=== PATIENT | female | born 1940 | race Caucasian/White ===

== ENCOUNTER 2016-11-06 14:34 | Outpatient (CLI) | payer MEDICARE, OTHER ==
--- NOTE | 2016-11-07 10:03 | Ultrasound Report ---
AORTA SCREEN: 11/06/2016 CLINICAL INDICATION: Hypercholesterolemia. TECHNIQUE: Real-time scanning was performed with auto claim representative static images obtained. FINDINGS: The abdominal aorta is normal in caliber, measuring 1.9 cm proximally , 1.9 cm in the mid portion, and 1.4 cm distally. The iliacs are normal in caliber. Calcified plaquing is noted. IMPRESSION: NO EVIDENCE OF AN ABDOMINAL AORTIC ANEURYSM. JOB #: [id number] EXT JOB #: [id number] [facility]
--- NOTE | 2016-11-07 17:13 | Ultrasound Report ---
CAROTID DUPLEX: 11/06/2016 CLINICAL INDICATION: Hypercholesterolemia. TECHNIQUE: Real-time sonographic vascular imaging was performed by the cutter first through the carotid arteries utilizing both color-flow and Doppler spectral analysis. Multiple billing representative static images were saved for review. Vessel PSV cm/sec 2D Plaque Estimate % ICA/CCA PSV EDV cm/sec % Stenosis RCCA Prox 79.5 -- RCCA Dist 82 14 RECA 81 -- RT BULB 54 -- .65 11 CHRIS Prox 61 -- .74 15 CHRIS Mid 91 -- 1.10 25 CHRIS Dist 96 -- 1.17 25 RVA 45 RVA flow direction: Antegrade. Vessel PSV cm/sec 2D Plaque Estimate % ICA/CCA PSV EDV cm/sec % Stenosis LCCA Prox 71 -- LCCA Dist 75 18 LECA 72 -- LFT BULB 57 -- .76 12 LICA Prox 68 -- .90 21 LICA Mid 87 -- 1.16 25 LICA Dist 64 -- .85 18 LVA 44 LVA flow direction: Antegrade. Velocity criteria are extrapolated from diameter data as defined by the Society of Radiologists in Ultrasound Consensus Conference Radiology 2003; 229; 340-346. Degree of Stenosis % ICA PSV cm/sec Plaque Estimate % ICA/CCA RSV Ratio ICA EDV cm/sec Normal < 125 None < 2.0 < 40 <50 < 125 < 50 < 2.0 < 40 50-69 125 - 130 >/= 50 2.0 - 4.0 40 - 100 >/= 70 but less than near occlusion > 230 >/= 50 > 4.0 > 100 Near occlusion High, low, or undetectable Visible lumen Variable Variable Total occlusion Undetectable No detectable lumen Not applicable Not applicable FINDINGS RIGHT: There is minimal plaquing in the right carotid bifurcation, without evidence of a focal hemodynamically significant stenosis. LEFT: There is minimal plaquing in the left carotid bifurcation, without evidence of a focal hemodynamically significant stenosis. The vertebral arteries demonstrate antegrade flow bilaterally. IMPRESSION: MINIMAL PLAQUING BILATERALLY. NO EVIDENCE OF A FOCAL HEMODYNAMICALLY SIGNIFICANT CAROTID STENOSIS. MTDD
== END 2016-11-06 14:35 | disposition home or self-care (01) ==
LOC: DI 14:34
PROVIDERS: ATTEND Family Medicine
DX: E78.00 Pure hypercholesterolemia, unspecified (principal)
CPT/HCPCS: 76706; 93880

== ENCOUNTER 2016-11-29 09:56 | Outpatient (CLI) | payer MEDICARE, OTHER ==
--- NOTE | 2016-11-30 17:12 | Mammography Report ---
DIGITAL SCREENING MAMMOGRAM: 11/29/2016 CLINICAL INDICATION: A 76-year-old for screening, history of benign excisional biopsy. COMPARISON: 11/2014, 11/2012, 12/2010, 10/2008, 11/2006. TECHNIQUE: Routine CC and MLO projections as well as bilateral laterally exaggerated craniocaudal vi ews were obtained of the breasts. FINDINGS: Parenchymal tissue within both breasts is heterogeneously dense, which may lower the sensi tivity of mammography; however, there are no dominant masses, suspicious microcalcifications, or seco ndary signs of malignancy. In comparison to the previous studies, there are no significant changes. ASSESSMENT: NO MAMMOGRAPHIC EVIDENCE OF MALIGNANCY. NO SIGNIFICANT INTERVAL CHANGES. RECOMMENDATION: Screening mammography is recommended annually. BIRADS category 1 - negative. STANDARD QUALIFYING STATEMENTS 1. This examination was reviewed with the aid of Computed-Aided Detection (CAD). 2. A negative or benign imaging report should not delay biopsy if clinically suspicious findings are present. Consider surgical consultation if warranted. More than 5% of cancers are not identified b y imaging. 3. Dense breasts may obscure an underlying neoplasm. JOB #: [id number] EXT JOB #:[id number]
== END 2016-11-29 09:57 | disposition home or self-care (01) ==
LOC: DI.S 09:56
PROVIDERS: ATTEND Family Medicine
DX: Z12.31 Encounter for screening mammogram for malignant neoplasm of breast (principal)
CPT/HCPCS: 77067

== ENCOUNTER 2016-12-13 07:02 | Day surgery (SDC) | payer MEDICARE, OTHER ==
[2016-12-13] MEDS ORDERED: LACTATED RINGERS 1,000 ML IV ONE (07:09)
[2016-12-13] MEDS ORDERED: fentaNYL 100 MCG/2 ML VIAL IVP ONE (08:37)
[2016-12-13] MEDS ORDERED: MIDAZOLAM 2 MG/2 ML VIAL IVP ONE (08:37)
[2016-12-13 09:20] VITALS: BP 110/65
== END 2016-12-13 07:03 | disposition home or self-care (01) ==
LOC: SDS 07:02
PROVIDERS: ATTEND Surgery
PROC: 0DJD8ZZ Inspection of Lower Intestinal Tract, Via Natural or Artificial Opening Endoscopic (ICD-10-PCS; principal; 2016-12-13 08:15)
DX: Z12.11 Encounter for screening for malignant neoplasm of colon (principal); K57.30 Diverticulosis of large intestine without perforation or abscess without bleeding; K64.8 Other hemorrhoids; F17.210 Nicotine dependence, cigarettes, uncomplicated
CPT/HCPCS: G0121; J7120

== ENCOUNTER 2017-01-14 10:45 | Emergency (ER) | payer MEDICARE, OTHER ==
[2017-01-14] MEDS ORDERED: LIDOCAINE 1% 2 ML VIAL ONE (12:33)
[2017-01-14] MEDS ORDERED: BACITRACIN OINT TOP ONE (13:16)
--- NOTE | 2017-01-14 13:33 | ED Physician Documentation ---
PD HPI UPPER EXT INJURY - Stated complaint Stated Complaint: R HAND LAC - Chief complaint Chief Complaint: Wound - History obtained from History obtained from: Patient - History of Present Illness Location: Right, Hand Type of injury: Blunt / blow Where injury occurred: Home Timing - onset: Today Timing - duration: Hours Timing - details: Abrupt onset, Still present Improved by: Rest, Immobilization Worsened by: Moving, Palpating Contributing factors: No: Anticoagulated Similar symptoms before: Has not had sx before Recently seen: Not recently seen - Additonal information Additional information: 76-year-old female is leading her horse out of a gait when the horse bolted open the gate and this tore the skin on the back of her right hand is a large flap of skin and exposed tendon. PD PAST MEDICAL HISTORY - Past Medical History Past Medical History: Yes Endocrine/Autoimmune: HyPOthyroidism - Past Surgical History Past Surgical History: Yes General: Colonoscopy Ortho: Hip replacement /STOCK TAKER: Tubal ligation HEENT: Tonsil/Adenoidectomy - Present Medications Home Medications: Ambulatory Orders Medication Instructions Recorded Confirmed Doxycycline Hyclate 20 mg PO BID 12/12/16 01/14/17 Fesoterodine Fumarate [Toviaz] 8 mg PO DAILY 12/12/16 01/14/17 Levothyroxine Sodium [Synthroid] 137 mcg PO DAILY 12/12/16 01/14/17 Simvastatin 20 mg PO DAILY 12/12/16 01/14/17 - Allergies Allergies/Adverse Reactions: Allergies Allergy/AdvReac Type Severity Reaction Status Date / Time ethinyl estradiol Allergy Hives Verified 12/12/16 16:45 [From Ortho-Novum (21)] metronidazole [From Flagyl] Allergy Hives Verified 12/12/16 16:44 norethindrone * Allergy Hives Verified 12/12/16 16:45 [From Ortho-Novum 35 (21)] oxycodone HCl * Allergy Hives Verified 12/12/16 16:45 [From OxyContin] Sulfa (Sulfonamide Allergy Unknown Verified 12/12/16 16:44 Antibiotics) - Social History Does the pt smoke?: Yes Smoking Status: Current every day smoker Does the pt drink ETOH?: Yes ETOH Use: Wine, Beer Does the pt have substance abuse?: No - Immunizations Immunizations are current?: Yes - POLST Patient has POLST: No PD ED PE NORMAL - Vitals Vital signs reviewed: Yes (normal ) - General General: Alert and oriented X 3, No acute distress, Well developed/nourished - HEENT HEENT: Atraumatic, PERRL, EOMI - Respiratory Respiratory: No respiratory distress - Derm Derm: Normal color, Warm and dry, No rash - Extremities Extremities: Other (over the dorsum of the right hand there is a skin flap that is deep to the extensor tendon of the right index. The skin covers the defect easily. There is no disruption of the tendon or deeper structures and the distal n/v is intact. The flap is approx 9cm) - Neuro Neuro: Alert and oriented X 3, No motor deficit, No sensory deficit, Normal speech Results - Vitals Vitals: Vital Signs - 24 hr 01/14/17 01/14/17 10:57 13:33 Temperature 36.4 C L 36.7 C Heart Rate 73 61 Respiratory 14 18 Rate Blood Pressure 102/63 102/65 O2 Saturation 97 96 Oxygen O2 Source Room air Procedures - Laceration (location) right hand Length in cm: 9 Wound type: Irregular, Flap, Into subcut fat, Clean Anesthesia: Lidocaine 1% Wound Preparation: Hibiclens, Irrigated copiously NS, Wound explored, To the base Skin layer closure: Nylon, Interrupted, Size #-0 - enter number (5-0), Sutures - enter # (21) Other: Patient tolerated well, No complications, Neurovascular intact, Dressing applied, Tetanus UTD Complexity: Simple PD MEDICAL DECISION MAKING - ED course Complexity details: re-evaluated patient, considered differential, d/w patient, d/w family ED course: 76 y/o female with a thin skin flap that has a deep component has the skin to cover the wound and this is sutured. Departure - Departure Disposition: 01 Home, Self Care Clinical Impression: Hand laceration Qualifiers: Encounter type: initial encounter Foreign body presence: without foreign body Laterality: right Qualified Code(s): S61.411A - Laceration without foreign body of right hand, initial encounter Instructions: ED Laceration Hand Follow-Up: Zahra Cunningham MD [Primary Care Provider] - Comments: sutures out in 10 days Discharge Date/Time: 01/14/17 13:36
[2017-01-14 13:34] VITALS: BP 102/65
== END 2017-01-14 13:36 | disposition home or self-care (01) ==
LOC: ED 10:45
DX: S61.411A Laceration without foreign body of right hand, initial encounter (principal); Y93.K1 Activity, walking an animal; Y92.017 Garden or yard in single-family (private) house as the place of occurrence of the external cause
CPT/HCPCS: 12004; 99282; 99283; A9270

== ENCOUNTER 2018-10-30 14:56 | Outpatient (CLI) | payer MEDICARE, OTHER ==
--- NOTE | 2018-10-30 18:47 | MRI Report ---
Reason: SPINAL STENOSIS, CERVICAL REGION Procedure Date: 10/30/2018 Accession Number: [id number] / [id number] Procedure: MRI - Cervical Spine W/O CPT Code: FULL RESULT: EXAM: MRI CERVICAL SPINE WITHOUT CONTRAST. EXAM DATE: 10/30/2018 03:45 PM. CLINICAL HISTORY: Spinal stenosis, cervical region. COMPARISONS: None. TECHNIQUE: Multiplanar, multisequence T1-weighted and fluid-sensitive sequences of the cervical spine without contrast. Other: None. FINDINGS: Vertebral body height loss is seen at T3 and at T4. There is no marrow edema seen. No significant retropulsion of fracture fragments is present. This appears to be chronic. There is some motion degradation on the study. No suspicious marrow replacement is present in the cervical vertebral bodies. Mild loss of vertebral body height is seen along the superior plate at T1 and to a lesser extent T2 without marrow edema. Buckling of ligamentum flavum is seen most evident from C3-C7. Grade 1 retrolisthesis of C3 relative to C4 is present. Grade 1 retrolisthesis of C5 relative to C6 is noted. Accounting for artifact, no abnormal T2 signal is present in the cervical spinal cord. C2-C3: No posterior disk protrusion. C3-C4: A mild broad-based posterior disk protrusion is seen. Disk/osteophyte complex formation is seen involving the posterior lateral margin of the disk bilaterally. Bilateral uncovertebral joint spurring is seen. Moderate bilateral foraminal stenosis is seen. No central canal stenosis. C4-C5: A minimal posterior disk protrusion is seen. Bilateral uncovertebral joint spurring is seen. Right facet hypertrophy is present. Mild bilateral foraminal stenosis greater on the right relative to the left. C5-C6: A mild broad-based posterior disk protrusion is seen. Disk/osteophyte complex formation is seen involving the posterior lateral margin of the disk bilaterally. Bilateral uncovertebral joint spurring is seen. Moderate bilateral foraminal stenosis is present. Central canal is borderline without overt stenosis. C6-C7: A mild broad-based posterior disk protrusion is seen. Disk/osteophyte complex formation is seen involving the posterior lateral margin of the disk bilaterally. Bilateral uncovertebral joint spurring is seen. Mild to moderate bilateral foraminal stenosis is seen. C7-T1: No posterior disk protrusion. IMPRESSION: 1. Degenerative disk disease, osteophyte formation, and uncovertebral joint spurring are seen at multiple levels in the cervical spine. This is greatest at C3-C4, C5-C6, and C6-C7. 2. No central canal stenosis is present. The central canal is borderline at C5-C6 3. Multilevel foraminal stenosis is present. 4. Chronic vertebral body height loss is seen involving the upper thoracic vertebral bodies most evident at T3 and T4. RADIA
== END 2018-10-30 14:57 | disposition home or self-care (01) ==
LOC: DI 14:56
PROVIDERS: ATTEND Nurse Practitioner Adult Health
DX: M50.31 Other cervical disc degeneration, high cervical region (principal); M47.9 Spondylosis, unspecified; M50.21 Other cervical disc displacement, high cervical region; M48.02 Spinal stenosis, cervical region; M51.34 Other intervertebral disc degeneration, thoracic region; M43.12 Spondylolisthesis, cervical region
CPT/HCPCS: 72141

== ENCOUNTER 2019-07-03 14:11 | Outpatient (CLI) | payer MEDICARE, OTHER ==
[2019-07-03 17:48] LABS: ALBUMIN 4.4 g/dL (3.2-5.5); BILIRUBIN,DIRECT 0.1 mg/dL (0.1-0.5); BILIRUBIN,TOTAL 0.6 mg/dL (0.2-1.0)
== END 2019-07-03 14:12 | disposition home or self-care (01) ==
LOC: LAB.S 14:11
PROVIDERS: ATTEND Physician Assistant Medical
DX: B35.1 Tinea unguium (principal); Z79.899 Other long term (current) drug therapy
CPT/HCPCS: 36415; 80076

== ENCOUNTER 2019-09-02 10:04 | Outpatient (CLI) | payer MEDICARE, OTHER ==
[2019-09-02 18:13] LABS: THYROID STIMULATING HORMONE 2.41 uIU/mL (0.34-5.60)
[2019-09-02 18:15] LABS: FREE T4 (FREE THYROXINE) 1.44 ng/dL (0.58-1.64)
== END 2019-09-02 10:05 | disposition home or self-care (01) ==
LOC: LAB.S 10:04
PROVIDERS: ATTEND Family Medicine
DX: E03.9 Hypothyroidism, unspecified (principal); R79.82 Elevated C-reactive protein (CRP)
CPT/HCPCS: 36415; 84439; 84443; 86140

== ENCOUNTER 2019-09-11 13:35 | Outpatient (CLI) | payer MEDICARE, OTHER ==
--- NOTE | 2019-09-17 13:45 | Mammography Report ---
Reason: ROUTINE MAMMO Procedure Date: 09/11/2019 Accession Number: [id number] / [id number] Procedure: MATILDA - Screening Mammo Dig Bilat CPT Code: Final Report FULL RESULT: EXAM: Screening Mammo Dig Bilat DATE: 09/11/2019 2:18 PM CLINICAL HISTORY: Screening encounter. History of excisional left breast biopsy with benign pathology. TECHNIQUE: (B) - Bilateral CC, laterally exaggerated CC, MLO views were obtained. COMPARISON: 11/29/2016 through 01/03/2011. PARENCHYMAL PATTERN: (D) - The breast(s) demonstrate(s) heterogeneously dense fibroglandular parenchyma. FINDINGS: There are no suspicious masses, calcifications, or areas of distortion. IMPRESSION: Negative examination. BI-RADS category 1. RECOMMENDATION: (ANNUAL) - Recommend routine annual screening mammography. BI-RADS CATEGORY: (1) - Negative. STANDARD QUALIFYING STATEMENTS: 1. This examination was not reviewed with the aid of Computer-Aided Detection (CAD). 2. A negative or benign imaging report should not preclude biopsy if clinically suspicious findings are present. 3. Dense breasts may obscure an underlying neoplasm. 4. This examination was reviewed without the aid of 3D breast imaging (tomosynthesis).
== END 2019-09-11 13:36 | disposition home or self-care (01) ==
LOC: DI 13:35
PROVIDERS: ATTEND Family Medicine
DX: Z12.31 Encounter for screening mammogram for malignant neoplasm of breast (principal)
CPT/HCPCS: 77067

== ENCOUNTER 2019-09-11 13:40 | Outpatient (CLI) | payer MEDICARE, OTHER ==
--- NOTE | 2019-09-16 11:24 | DEXA Report ---
Reason: FOREARM FOR BILAT HIP HARDWARE Procedure Date: 09/11/2019 Accession Number: [id number] / [id number] Procedure: DEX - Dexa Forearm CPT Code: Final Report FULL RESULT: EXAM: Dexa Spine and/or Hip, Dexa Forearm DATE: 09/11/2019 3:07 PM CLINICAL HISTORY: DISORDER OF BONE TECHNIQUE: Dual energy x-ray absorptiometry (DXA) was performed on a [employer] System. Regions measured are the AP Spine, femoral neck, and if needed forearm. The forearm was imaged in standard of the hip as the patient has had orthopedic fixation hardware to both hips. COMPARISON: None. In accordance with the International Society for Clinical Densitometry (ISCD) guidelines, data from previous exams may be reanalyzed using current recommendations and techniques. This is done to allow a more accurate basis for comparison with the current study. FINDINGS: The data for the lumbar spine is as follows: BMD (g/cm/cm) T-SCORE Z-SCORE REGION L1 0.819 -2.6 -0.6 L2 1.022 -1.5 0.5 L3 1.174 -0.2 1.8 L4 1.194 -0.1 2.0 TOTAL 1.082 -0.8 1.2 NOTE: All evaluable vertebrae are used for classification The data for the left forearm is as follows: BMD (g/cm/cm) T-SCORE Z-SCORE REGION 1/3 0.785 -1.0 1.7 NOTE: The 33% radius of the nondominant forearm is used for classification. DXA RESULTS SUMMARY: Spine SCAN DATE AGE BMD CHANGE VS CHANGE VS PREVIOUS PREVIOUS % 09[birth year]11/2019 [age] 1.143 0.045* 4.1* 03[birth year]14/2016 75.6 1.098 * Denotes significant change at the 95% confidence level. Denotes dissimilar scan types or analysis methods. DXA RESULTS SUMMARY: Forearm SCAN DATE AGE BMD CHANGE VS CHANGE VS PREVIOUS PREVIOUS % 09[age]11/2019 79.1 0.785 -0.012 -1.5 03[birth year]14/2016 75.6 0.797 * Denotes significant change at the 95% confidence level. Denotes dissimilar scan types or analysis methods. IMPRESSION: THE WHO CLASSIFICATION BASED ON THE INTERNATIONAL REFERENCE STANDARD IS NORMAL. THE FRACTURE RISK IS NOT INCREASED. Interval decrease in bone density in the lumbar spine is statistically significant. RECOMMENDATION: Patients with diagnosis of osteoporosis or osteopenia should have regular bone mineral density assessment. For those eligible for Medicare, routine testing is allowed once every 2 years. Testing frequency can be increased for patients who have rapidly progressing disease or for those who are receiving medical therapy to restore bone mass. COMMENT: World Health Organization (WHO) definitions for osteoporosis and osteopenia: NORMAL BMD: T-score at -1.0 or higher, fracture risk is low OSTEOPENIA BMD: T-score between -1.0 and -2.5, fracture risk is increased. OSTEOPOROSIS BMD: T-score at -2.5 or lower, fracture risk is high. National Osteoporosis Foundation recommends: 1. Obtain adequate dietary calcium (at least 1200 mg per day) and vitamin D (400-800 international units per day). 2. Participate, as appropriate, in regular weightbearing and muscle-strengthening exercise. 3. Avoid tobacco use and reduce alcohol and caffeine intake. 4. For more detailed information see the website at www.NOF.org.
--- NOTE | 2019-09-16 11:24 | DEXA Report ---
Reason: DISORDER OF BONE Procedure Date: 09/11/2019 Accession Number: [id number] / [id number] Procedure: DEX - Dexa Spine and/or Hip CPT Code: Final Report FULL RESULT: EXAM: Dexa Spine and/or Hip, Dexa Forearm DATE: 09/11/2019 3:07 PM CLINICAL HISTORY: DISORDER OF BONE TECHNIQUE: Dual energy x-ray absorptiometry (DXA) was performed on a [employer] System. Regions measured are the AP Spine, femoral neck, and if needed forearm. The forearm was imaged in standard of the hip as the patient has had orthopedic fixation hardware to both hips. COMPARISON: None. In accordance with the International Society for Clinical Densitometry (ISCD) guidelines, data from previous exams may be reanalyzed using current recommendations and techniques. This is done to allow a more accurate basis for comparison with the current study. FINDINGS: The data for the lumbar spine is as follows: BMD (g/cm/cm) T-SCORE Z-SCORE REGION L1 0.819 -2.6 -0.6 L2 1.022 -1.5 0.5 L3 1.174 -0.2 1.8 L4 1.194 -0.1 2.0 TOTAL 1.082 -0.8 1.2 NOTE: All evaluable vertebrae are used for classification The data for the left forearm is as follows: BMD (g/cm/cm) T-SCORE Z-SCORE REGION 1/3 0.785 -1.0 1.7 NOTE: The 33% radius of the nondominant forearm is used for classification. DXA RESULTS SUMMARY: Spine SCAN DATE AGE BMD CHANGE VS CHANGE VS PREVIOUS PREVIOUS % 09[age]11/2019 79.1 1.143 0.045* 4.1* 03[birth year]14/2016 76.6 1.098 * Denotes significant change at the 95% confidence level. Denotes dissimilar scan types or analysis methods. DXA RESULTS SUMMARY: Forearm SCAN DATE AGE BMD CHANGE VS CHANGE VS PREVIOUS PREVIOUS % 09[birth year]11/2019 79.1 0.785 -0.012 -1.5 03[birth year]14/2016 75.6 0.797 * Denotes significant change at the 95% confidence level. Denotes dissimilar scan types or analysis methods. IMPRESSION: THE WHO CLASSIFICATION BASED ON THE INTERNATIONAL REFERENCE STANDARD IS NORMAL. THE FRACTURE RISK IS NOT INCREASED. Interval decrease in bone density in the lumbar spine is statistically significant. RECOMMENDATION: Patients with diagnosis of osteoporosis or osteopenia should have regular bone mineral density assessment. For those eligible for Medicare, routine testing is allowed once every 2 years. Testing frequency can be increased for patients who have rapidly progressing disease or for those who are receiving medical therapy to restore bone mass. COMMENT: World Health Organization (WHO) definitions for osteoporosis and osteopenia: NORMAL BMD: T-score at -1.0 or higher, fracture risk is low OSTEOPENIA BMD: T-score between -1.0 and -2.5, fracture risk is increased. OSTEOPOROSIS BMD: T-score at -2.5 or lower, fracture risk is high. National Osteoporosis Foundation recommends: 1. Obtain adequate dietary calcium (at least 1200 mg per day) and vitamin D (400-800 international units per day). 2. Participate, as appropriate, in regular weightbearing and muscle-strengthening exercise. 3. Avoid tobacco use and reduce alcohol and caffeine intake. 4. For more detailed information see the website at www.NOF.org.
== END 2019-09-11 13:41 | disposition home or self-care (01) ==
LOC: DI 13:40
PROVIDERS: ATTEND Family Medicine
DX: M89.9 Disorder of bone, unspecified (principal); Z96.7 Presence of other bone and tendon implants
CPT/HCPCS: 77080; 77081

== ENCOUNTER 2019-09-19 13:38 | Outpatient (CLI) | payer MEDICARE, OTHER ==
[2019-09-19 18:19] LABS: ALBUMIN 4.3 g/dL (3.2-5.5); ALKALINE PHOSPHATASE 54 IU/L (42-121); ALT ALANINE AMINOTRANSFERASE 19 IU/L (10-60); AST ASPARTATE AMINOTRANSFERASE 21 IU/L (10-42); BILIRUBIN,TOTAL 0.7 mg/dL (0.2-1.0); TOTAL PROTEIN 6.9 g/dL (6.7-8.2)
[2019-09-19 18:28] LABS: BILIRUBIN,DIRECT < 0.1 mg/dL (0.1-0.5)
== END 2019-09-19 13:39 | disposition home or self-care (01) ==
LOC: LAB.S 13:38
PROVIDERS: ATTEND Physician Assistant Medical
DX: B35.1 Tinea unguium (principal); Z79.899 Other long term (current) drug therapy
CPT/HCPCS: 36415; 80076

== ENCOUNTER 2020-07-08 12:28 | Outpatient (CLI) | payer MEDICARE, OTHER ==
--- NOTE | 2020-07-08 12:57 | XRAY Report ---
PROCEDURE: Hip w/Pelvis 1V LT INDICATIONS: LEFT HIP PAIN TECHNIQUE: AP pelvis with lateral view(s) of the left hip(s). COMPARISON: None. FINDINGS: Bones: No fractures or dislocations. Pelvic ring appears intact. No suspicious bony lesions. Intr amedullary minh fixation is present within the left hip. Hardware is intact. No evidence of perihardwa re lucency. Previous area of fracture are noted. Soft tissues: The visualized bowel gas pattern is normal. No suspicious soft tissue calcifications. IMPRESSION: Good anatomic alignment with fixation of the left hip as above. Reviewed by: Grace Villegas MD on 07/08/2020 12:55 PM PST Approved by: Grace Villegas MD on 07/08/2020 12:55 PM PST Station ID: [id number]
== END 2020-07-08 23:59 | disposition home or self-care (01) ==
LOC: DI.S 12:28
PROVIDERS: ATTEND Physician Assistant Medical
DX: M25.552 Pain in left hip (principal)

== ENCOUNTER 2021-10-25 14:19 | Outpatient (CLI) | payer MEDICARE, OTHER ==
--- NOTE | 2021-10-26 14:09 | Mammography Report ---
BILATERAL DIGITAL SCREENING MAMMOGRAM 3D/2D WITH EXAGGERATED CC: 10/25/2021 CLINICAL: Routine screening. Family history of breast cancer. Comparison is made to exams dated: 09/11/2019 mammogram, 11/29/2016 mammogram, and 11/24/2014 mammogram - [facility]. The tissue of both breasts is heterogeneously dense. This may lower the sensitivity of mammography. No significant masses, calcifications, or other findings are seen in either breast. There has been no significant interval change. IMPRESSION: NEGATIVE There is no mammographic evidence of malignancy. A 1 year screening mammogram is recommended. This exam was interpreted at Station ID: [id number]. NOTE: For mammograms, a report in lay terms will be sent to the patient. Approximately 15% of breast malignancies will not be visualized mammographically. In the management of a palpable breast mass, a negative mammogram must not discourage biopsy of a clinically suspicious lesion. Electronically Signed By: Steven Hassan M.D. slc/penrad:10/25/2021 16:04:04 ACR BI-RADS Category 1: Negative 3341F PARENCHYMAL PATTERN: (D) - The breast(s) demonstrate(s) heterogeneously dense fibroglandular cyndi wallis. BI-RADS CATEGORY: (1) - 1 RECOMMENDATION: (ANNUAL) - Recommend routine annual screening mammography. [id number] 1 year screening LATERALITY: (B)
== END 2021-10-25 14:20 | disposition home or self-care (01) ==
LOC: DI.S 14:19
PROVIDERS: ATTEND Family Medicine
DX: Z12.31 Encounter for screening mammogram for malignant neoplasm of breast (principal); Z80.3 Family history of malignant neoplasm of breast

== ENCOUNTER 2021-11-20 21:25 | Outpatient (CLI) | payer MEDICARE, OTHER | END 2021-11-20 21:26 | disposition EMS.NT | LOC: EMS 21:25 | DX: S81.811A Laceration without foreign body, right lower leg, initial encounter (principal); W22.8XXA Striking against or struck by other objects, initial encounter; Y92.009 Unspecified place in unspecified non-institutional (private) residence as the place of occurrence of the external cause ==

== ENCOUNTER 2021-11-20 22:24 | Emergency (ER) | payer MEDICARE, OTHER ==
[2021-11-20] MEDS ORDERED: TETANUS/DIPHTHERIA/PERTUSSIS 0.5 ML SYRINGE IM ONE (23:01)
--- NOTE | 2021-11-20 23:04 | ED Physician Documentation ---
PD HPI LOWER EXT INJURY - Stated complaint Stated Complaint: RT LEG LAC/BLOOD THINNERS - Chief complaint Chief Complaint: Laceration - History obtained from History obtained from: Patient - History of Present Illness PD HPI LOW EXT INJURY LOCATION: Right, Lower leg Type of injury: Blunt / blow Where injury occurred: Home Timing - onset: Enter time (21:00), Today Timing - details: Abrupt onset Pain level now: 2 Associated symptoms: No: Weakness, Numbness, Tingling, Swelling, Discolored Contributing factors: Anticoagulated Similar symptoms before: Has not had sx before Recently seen: Not recently seen - Additional information Additional information: At approximately 9 PM tonight, patient got up quickly from sitting position to answer her telephone, accidentally struck her right lower leg against window sill, causing large laceration to the right lower leg. She is able to weight- bear. Her chief concern is persistent oozing; she takes eliquis. She does not know if she is up to date on tetanus Review of Systems Skin: reports: Laceration (s) Musculoskeletal: reports: Extremity pain, Pain with weight bearing (able to fully weight bear although this does exacerbate the RLL discomfort) Neurologic: denies: Focal weakness, Numbness PD PAST MEDICAL HISTORY - Past Medical History Past Medical History: Yes Cardiovascular: Atrial flutter Endocrine/Autoimmune: HyPOthyroidism - Past Surgical History Past Surgical History: Yes General: Colonoscopy Ortho: Hip replacement /DIRECTOR SPECIALTY: Tubal ligation HEENT: Tonsil/Adenoidectomy - Present Medications Home Medications: Ambulatory Orders Medication Instructions Recorded Confirmed Doxycycline Hyclate 20 mg PO BID 12/12/16 11/20/21 Fesoterodine Fumarate [Toviaz] 8 mg PO DAILY 12/12/16 11/20/21 Levothyroxine Sodium [Synthroid] 137 mcg PO DAILY 12/12/16 11/20/21 Simvastatin 20 mg PO DAILY 12/12/16 11/20/21 Apixaban [Eliquis] 5 mg PO DAILY 11/20/21 11/20/21 Cyclobenzaprine [Flexeril] 10 mg PO TID PRN #20 tablet 11/21/21 HYDROcod/ACETAM 5/325 [Schoolcraft 5/325] 1 - 2 tablet PO Q6H PRN #14 tablet 11/21/21 cephALEXin [Keflex] 500 mg PO Q6H #28 cap 11/21/21 - Allergies Allergies/Adverse Reactions: Allergies Allergy/AdvReac Type Severity Reaction Status Date / Time ethinyl estradiol Allergy Hives Verified 11/20/21 22:32 [From [facility]o-[facility] (21)] metronidazole [From Flagyl] Allergy Hives Verified 11/20/21 22:32 norethindrone * Allergy Hives Verified 11/20/21 22:32 [From [facility]o-[facility] (21)] oxycodone HCl * Allergy Hives Verified 11/20/21 22:32 [From OxyContin] Sulfa (Sulfonamide Allergy Unknown Verified 11/20/21 22:32 Antibiotics) - Social History Does the pt smoke?: Yes Smoking Status: Current every day smoker Does the pt drink ETOH?: Yes Does the pt have substance abuse?: No - Immunizations Immunizations are current?: Yes - POLST Patient has POLST: No PD ED PE NORMAL - Vitals Vital signs reviewed: Yes - General General: Alert and oriented X 3, No acute distress, Well developed/nourished - Extremities Extremities: No edema, Other (mild TTP over area of laceration but no bony tenderness to palpation) - Neuro Neuro: No motor deficit, No sensory deficit PD ED PE EXPANDED - Extremities RADHA LE visual: 1 - laceration 2 - laceration (V-shaped laceration, total of 13 cm length. laceration is down to fascia overlying the tibia) Results - Vitals Vitals: Oxygen O2 Source Room air Procedures - Laceration (location) Lower extremity right Length in cm: 13 Wound type: Irregular (V-shaped) Neurovascular status: Sensory intact, Motor intact, Vascular intact Tendon involvement: Tendon intact Wound preparation: Chlorhexadine, Irrigated copiously NS, Wound explored Skin layer closure: Nylon, Interrupted, Running, Size #-0 - enter number (3-0), Other (one running suture placed along the lateral aspect of the V of the wound, two running sutures for closure of the medial aspect, and two simple interrupted sutures placed at the vertex of the V) Other: Patient tolerated well, No complications, Neurovascular intact, Dressing applied, Tetanus booster given PD MEDICAL DECISION MAKING - ED course Complexity details: considered differential, d/w patient ED course: Presents with large laceration to right lower leg. The wound edges were thick enough to allow for suture repair (as opposed to being a simple skin tear), but not thick enough for reji. There was trivial bleeding before and during the procedure despite patient taking eliquis. I am prescribing a short course of short-acting opioid pain medication for this patient. I have reviewed the patients VEGETABLE TRIMMER and no concerning findings were noted. I have discussed that the opioids are for short term therapy only, and will not be refilled from the ED Departure - Departure Disposition: Home, Self Care Clinical Impression: Laceration Condition: Good Instructions: ED Laceration Ext Sutr Stap Tape Follow-Up: Zahra Cunningham MD [Primary Care Provider] - Prescriptions: Cyclobenzaprine [Flexeril] 10 mg PO TID PRN #20 tablet PRN Reason: Spasms cephALEXin [Keflex] 500 mg PO Q6H #28 cap HYDROcod/ACETAM 5/325 [Schoolcraft 5/325] 1 - 2 tablet PO Q6H PRN #14 tablet PRN Reason: Pain Comments: Follow up with your primary care provider in 10-14 days for removal of the stitches. Three prescriptions have been electronically submitted to [facility] in [place]: an antibiotic (cephalexin; this is to minimize the risk of the wound becoming infected), a pain medication (vicodin; this is a narcotic medication. Do not drive while taking this medication), and a muscle relaxer (cyclobenzaprine; may cause drowsiness. Do not drive while taking this medicati on). I am prescribing a short course of narcotic pain medication for you. These are potentially dangerous and addictive medications that should be used carefully. These medications may constipate you. Take an [id number]-nqsihuo stool softener (docusate) twice daily with plenty of water while taking these medications. If you go 24 hours without a bowel movement, take [id number] miralax, per package instructions. Do not drink or drive while taking these medications. If you received narcotic or sedating medications while in the emergency department, do not drive for 24 hours. Store this medication in a safe, secure place and out of reach of children. It is a violation of federal law to give or sell this medication to another person or to use in a manner other than prescribed. The ED will not refill narcotic prescriptions, including prescriptions lost or stolen. To dispose of unwanted medications: 1. [facility] [address] in [place] has a medication drop box. They accept prescription medications (in pill form) Sunday through Sunday 9:00 a.m. to 5:00 p.m. 2. [facility] accepts prescription medications (in pill form only) for disposal year round. Call for more information. 3. Contact the [facility] for the next [facility] sponsored prescription drug collection event. , [phone], or [phone]; Discharge Date/Time: 11/21/21 01:47
[2021-11-20] MEDS ORDERED: IBUPROFEN 600 MG TABLET PO STA (23:18)
[2021-11-20] MEDS ORDERED: lidocaine 1% 20 ML MDV SUBQ STA (23:19)
[2021-11-21] MEDS ORDERED: cephALEXin 250 MG CAPSULE PO STA (01:18)
[2021-11-21] MEDS ORDERED: CYCLOBENZAPRINE 10 MG Prepack 2 PO PRN (01:18)
[2021-11-21] MEDS ORDERED: HYDROcod/ACET 5/325 Prepack 4 PO STA (01:18)
[2021-11-21] MEDS ORDERED: BACITRACIN ZINC OINT 1 PACKET TOP STA (01:25)
[2021-11-21 01:36] VITALS: BP 151/81
== END 2021-11-21 01:47 | disposition home or self-care (01) ==
LOC: ED 22:24
DX: S81.811A Laceration without foreign body, right lower leg, initial encounter (principal); W22.09XA Striking against other stationary object, initial encounter; Y93.89 Activity, other specified; Y92.009 Unspecified place in unspecified non-institutional (private) residence as the place of occurrence of the external cause; F17.200 Nicotine dependence, unspecified, uncomplicated
CPT/HCPCS: 12005; 90471; 90715; 99283; A9270

== ENCOUNTER 2022-09-07 12:50 | Outpatient (CLI) | payer MEDICARE, OTHER ==
--- NOTE | 2022-09-07 17:55 | CT Report ---
PROCEDURE: HEAD WO INDICATIONS: SYNCOPE AND COLLAPSE TECHNIQUE: Noncontrast 4.5 mm thick angled axial sections acquired from the foramen magnum to the vertex. For r adiation dose reduction, the following was used: automated exposure control, adjustment of mA and/or kV according to patient size. COMPARISON: None. FINDINGS: Image quality: There is streak artifact seen through the skull base. CSF spaces: Basal cisterns are patent. No extra-axial fluid collections. Ventricles are normal in size and shape. Brain: No midline shift. No intracranial masses or hemorrhage. Frank-white matter interface is norm al. Age-appropriate brain parenchymal volume loss and chronic small vessel ischemic change can be se en. Skull and face: Calvarium and visualized facial bones are intact, without suspicious lesions. Sinuses: Visualized sinuses and mastoids are clear. IMPRESSION: Unremarkable noncontrast head CT for age, without a cause of the patient's presenting symptoms identi fied. Reviewed by: Toño Antoine MD on 09/07/2022 4:53 PM AKST Approved by: Toño Antoine MD on 09/07/2022 4:53 PM AKST Station ID: [id number]
== END 2022-09-07 12:51 | disposition home or self-care (01) ==
LOC: DI 12:50
PROVIDERS: ATTEND Internal Medicine Cardiovascular Disease
DX: R55 Syncope and collapse (principal)

== ENCOUNTER 2022-11-01 13:20 | Outpatient (CLI) | payer MEDICARE, OTHER ==
--- NOTE | 2022-11-02 10:49 | Mammography Report ---
BILATERAL DIGITAL SCREENING MAMMOGRAM 3D/2D WITH EXAGGERATED CC: 11/01/2022 CLINICAL: Routine screening. Family history of breast cancer. Comparison is made to exams dated: 10/25/2021 mammogram, 09/11/2019 mammogram, and 11/29/2016 mammogram - [facility]. Both breasts are heterogeneously dense, which may obscure small masses (category c / 51-75% glandular tissue). No significant masses, calcifications, or other findings are seen in either breast. There has been no significant interval change. IMPRESSION: NEGATIVE There is no mammographic evidence of malignancy. A 1 year screening mammogram is recommended. Based on the Tyrer Cuzick model (a risk assessment model) the patients lifetime risk is 0.6% and her 10 year risk is 0.0%. According to the ACR, ACS, and NCCN guidelines, an annual breast MRI exam linnea g with mammogram is recommended if the patients lifetime risk is 20% or greater. This exam was interpreted at Station ID: [id number]. NOTE: For mammograms, a report in lay terms will be sent to the patient. Approximately 15% of breast malignancies will not be visualized mammographically. In the management of a palpable breast mass, a negative mammogram must not discourage biopsy of a clinically suspicious lesion. Electronically Signed By: Steven alexis/jorge alberto:11/01/2022 17:04:30 letter sent: No_Letter ACR BI-RADS Category 1: Negative 3341F PARENCHYMAL PATTERN: (D) - The breast(s) demonstrate(s) heterogeneously dense fibroglandular cyndi wallis. BI-RADS CATEGORY: (1) - 1 Mammogram [id number] 1 year screening LATERALITY: (B)
== END 2022-11-01 13:21 | disposition home or self-care (01) ==
LOC: DI.S 13:20
PROVIDERS: ATTEND Family Medicine
DX: Z12.31 Encounter for screening mammogram for malignant neoplasm of breast (principal); Z80.3 Family history of malignant neoplasm of breast

== ENCOUNTER 2024-01-21 07:00 | Outpatient (CLI) | payer MEDICARE, OTHER ==
--- NOTE | 2024-01-21 20:00 | XRAY Report ---
PROCEDURE: Lumbar Spine 4V INDICATIONS: LUMBAR BACK PAIN WITH RADICULOPATHY TECHNIQUE: 5 views of the lumbar spine were acquired. COMPARISON: None. FINDINGS: Surgical change: None. Bones: 5 [id number] vertebrae are present. There is normal bony alignment. Old mild L4 compress ion. No acute compressions. Lower lumbar facet arthropathy. No suspicious bony lesions. Soft tissues: Overlying bowel gas pattern is normal. No suspicious soft tissue calcifications. IMPRESSION: 1. Old mild compression. No acute compressions. 2. Lower lumbar facet arthropathy. Reviewed by: Keith Navarro MD on 01/21/2024 7:59 PM PDT Approved by: Keith Navarro MD on 01/21/2024 7:59 PM PDT Station ID: [id number]
== END 2024-01-21 23:59 | disposition home or self-care (01) ==
LOC: DI.S 07:00
PROVIDERS: ATTEND Physician Assistant Medical
DX: M47.816 Spondylosis without myelopathy or radiculopathy, lumbar region (principal)